=== PATIENT | male | born 2000 | race Native Hawaiian/Other Pacific Islander ===

== ENCOUNTER 2021-10-14 14:00 | Outpatient (CLI) | payer OTHER | END 2021-10-14 19:03 | disposition home or self-care (01) | LOC: LAB 14:00 | PROVIDERS: ATTEND Family Medicine | DX: U07.1 COVID-19 (principal); R50.9 Fever, unspecified; R05.9 Cough, unspecified; F41.9 Anxiety disorder, unspecified; Z11.52 Encounter for screening for COVID-19 | CPT/HCPCS: 87635; U0003 ==